=== PATIENT | female | born 1970 | race Caucasian/White ===

== ENCOUNTER → 2020-11-06 | Outpatient (CLI) | payer SELFPAY ==
[~2020-11-06] MED LIST: HYDROCHLOROTHIA25 MG PO; LOPRESSOR 25 MG25 MG PO; NORCO 5-325 TA1 EACH PO; ZYVOX600 MG PO
== END ==
LOC: KOH-I 11-02 10:00
DX: R74.8 Abnormal levels of other serum enzymes (principal); K76.0 Fatty (change of) liver, not elsewhere classified; K80.20 Calculus of gallbladder without cholecystitis without obstruction
CPT/HCPCS: 76705